=== PATIENT | female | born 1995 | race African-American/Black ===

== ENCOUNTER 2017-07-29 04:14 | Emergency (ER) | payer SELFPAY ==
[~2017-07-29] VITALS: Ht 177.8 cm; Wt 154.5 kg
[2017-07-29 04:17] VITALS: BP 153/89; PULSE 109; RESP 16; TEMP 98.8; O2SAT 100
--- NOTE | 2017-07-29 05:10 | PD ---
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 Symptoms have worsened. Patient has taken no medications for symptom relief. Patient has Mirena in place. Patient denies . Last period was approximately one month ago. Patient denies fever chills nausea vomiting diarrhea dysuria frequency urgency hematuria vaginal discharge or abnormal vaginal bleeding. Patient's had no injury. Patient is very concerned that this is ovarian pain. Patient denies previous history of ovarian cysts or ovarian issues. No reported history of endometriosis. Patient is Ab1. Pain intensity is 9/10 in intensity. Patient is unable to identify exacerbating or alleviating factors. PFSH Past Medical History Narrative Medical Negative past medical history negative surgical history; occasional alcohol use ; nursing notes reviewed Medical History: Denies Significant Hx Tetanus Vaccination: < 5 Years Influenza Vaccination: No ?: Unknown LMP: 06/2017... HAS MIRENA : 1 : 1 Past Surgical History Surgical History: No Previous Surgery Social History Alcohol Use: Yes (RARELY ) Tobacco Use: No Substance Use: No Allergies-Medications (Allergen,Severity, Reaction): Coded Allergies: No Known Allergies (Unverified , 07/29/17) Reported Meds & Prescriptions Reported Meds & Active Scripts Active No Active Prescriptions or Reported Medications Review of Systems Except as stated in HPI: all other systems reviewed are Neg General / Constitutional: No: Fever, Chills HENT: No: Congestion Cardiovascular: No: Chest Pain or Discomfort Gastrointestinal: Positive: Abdominal Pain, No: Nausea, Vomiting, Diarrhea Genitourinary: Positive: Pelvic Pain, No: Dysuria, Flank Pain, Discharge, Vaginal Bleeding Musculoskeletal: No: Myalgias, Arthralgias Skin: No Rash Neurologic: No: Weakness Psychiatric: No: Anxiety Hematologic/Lymphatic: No: Easy Bruising Physical Exam Narrative GENERAL: Well-developed well-nourished female in no acute distress no respiratory distress SKIN: Warm and dry. HEAD: Normocephalic. EYES: No scleral icterus. No injection or drainage. NECK: Supple, trachea midline. No JVD or lymphadenopathy. CARDIOVASCULAR: Regular rate and rhythm without murmurs, gallops, or rubs. RESPIRATORY: Breath sounds equal bilaterally. No accessory muscle use. GASTROINTESTINAL: Abdomen soft, suprapubic tenderness without guarding or rebound, nondistended. Pelvic exam: Normal external exam no redness induration or lesions; speculum exam scant clear mucus no clots no tissue no blood cervical os is closed; bimanual exam no cervical motion tenderness due to body habitus exam is limited and difficult to discern adnexal mass or tenderness MUSCULOSKELETAL: No cyanosis, or edema. BACK: Nontender without obvious deformity. No CVA tenderness. Data Data Last Documented VS Vital Signs Date Time Temp Pulse Resp B/P (MAP) Pulse Ox O2 Delivery O2 Flow Rate FiO2 07/29/17 04:17 98.8 109 16 153/89 (110) 100 Room Air Orders Orders Complete Blood Count With Diff (07/29/17 04:34) Basic Metabolic Panel (Bmp) (07/29/17 04:34) Urinalysis - C+S If Indicated (07/29/17 04:34) Ed Urine Pregnancytest Poc (07/29/17 04:34) Ketorolac Inj (Toradol Inj) (07/29/17 05:15) Ct Abd/Pel W Iv Contrast(Rout) (07/29/17 ) Labs Laboratory Tests Test 07/29/17 04:52 07/29/17 05:47 Urine Color YELLOW Urine Turbidity CLEAR Urine pH 5.5 Urine Specific [place] 1.026 Urine Protein NEG mg/dL Urine Glucose (UA) NEG mg/dL Urine Ketones NEG mg/dL Urine Occult Blood NEG Urine Nitrite NEG Urine Bilirubin NEG Urine Urobilinogen LESS THAN 2.0 MG/DL Urine Leukocyte Esterase NEG Urine RBC LESS THAN 1 /hpf Urine WBC LESS THAN 1 /hpf Urine Squamous Epithelial Cells <1 /hpf Urine Mucus FEW /lpf Microscopic Urinalysis Comment CULT NOT INDICATED White Blood Count 13.4 TH/MM3 Red Blood Count 5.01 MIL/MM3 Hemoglobin 10.9 GM/DL Hematocrit 34.8 % Mean Corpuscular Volume 69.5 FL Mean Corpuscular Hemoglobin 21.7 PG Mean Corpuscular Hemoglobin Concent 31.2 % Red Cell Distribution Width 17.5 % Platelet Count 486 TH/MM3 Mean Platelet Volume 8.0 FL Neutrophils (%) (Auto) 69.7 % Lymphocytes (%) (Auto) 23.0 % Monocytes (%) (Auto) 4.5 % Eosinophils (%) (Auto) 1.7 % Basophils (%) (Auto) 1.1 % Neutrophils # (Auto) 9.4 TH/MM3 Lymphocytes # (Auto) 3.1 TH/MM3 Monocytes # (Auto) 0.6 TH/MM3 Eosinophils # (Auto) 0.2 TH/MM3 Basophils # (Auto) 0.2 TH/MM3 CBC Comment DIFF FINAL Differential Comment Blood Urea Nitrogen 11 MG/DL Creatinine 0.73 MG/DL Random Glucose 97 MG/DL Calcium Level 9.1 MG/DL Sodium Level 135 MEQ/L Potassium Level 3.8 MEQ/L Chloride Level 101 MEQ/L Carbon Dioxide Level 25.3 MEQ/L Anion Gap 9 MEQ/L Estimat Glomerular Filtration Rate 121 ML/MIN MDM Medical Decision Making Medical Screen Exam Complete: Yes Emergency Medical Condition: Yes Medical Record Reviewed: Yes Interpretation(s) CBC & BMP Diagram 07/29/17 05:47 Calcium Level 9.1 Vital Signs Date Time Temp Pulse Resp B/P (MAP) Pulse Ox O2 Delivery O2 Flow Rate FiO2 07/29/17 04:17 98.8 109 16 153/89 (110) 100 Room Air [id number] hCG: Negative Differential Diagnosis Pelvic pain, ovarian cyst rupture, ovarian torsion, UTI, ectopic , intestinal spasms/colic, renal colic Narrative Course Well-nourished obese female with mild tenderness to direct palpation on abdominal exam on pelvic exam has no discharge no blood cervical os appears closed bimanual exam is obscured secondary to body habitus but does not have actual cervical motion tenderness and Mirena string is noted. Patient is identified to have white count elevation of 13,000 with an unremarkable urinalysis. CT abdomen and pelvis has been ordered. It is [address] imaging study has been signed out to oncoming physician Dr. Delcid for follow-up of results and patient disposition Diagnosis Primary Impression: Abdominal pain Scripts No Active Prescriptions or Reported Meds Shanel Gonzalez MD Jul 29, 2017 05:10
[2017-07-29] MEDS ORDERED: KETOROLAC TROMETHAMINE 30 MG/ML (IVP) VIAL IV PUSH ONE (05:15)
[2017-07-29 05:39] LABS: BLOOD, URINE NEG (NEG); COMMENT (UR) CULT NOT INDICATED; CULTURE IF INDICATED CULT NOT INDICATED; GLUCOSE,URINE NEG (NEG); KETONE, URINE NEG (NEG); MUCUS URINE FEW /lpf (OCC); NITRITE,URINE NEG (NEG); PH, URINE 5.5 (5.0-8.5); SQUAMOUS EPITHELIAL CELL URINE <1 /hpf (0-5); URINE COLOR YELLOW (YELLW/STRAW)
[2017-07-29 06:15] LABS: AUTOMATED NEUTROPHIL # 9.4 TH/MM3 (1.8-7.7); BASOPHIL # 0.2 TH/MM3 (0-0.2); BASOPHIL % 1.1 % (0.0-2.0); EOSINOPHIL # 0.2 TH/MM3 (0-0.4); EOSINOPHIL % 1.7 % (0.0-4.0); HEMATOCRIT 34.8 % (35.0-46.0); HEMO FLAGS DIFF FINAL; LYMPHOCYTE # 3.1 TH/MM3 (1.0-4.8); MEAN CELL VOLUME 69.5 FL (80.0-100.0); MEAN CORPUSCULAR HEMOGLOBIN 21.7 PG (27.0-34.0); MEAN CORPUSCULAR HGB CONC 31.2 % (32.0-36.0); MONO % 4.5 % (0.0-8.0); NEUT % 69.7 % (16.0-70.0); PLATELET COUNT 486 TH/MM3 (150-450); RED BLOOD COUNT 5.01 MIL/MM3 (4.00-5.30); RED CELL DISTRIBUTION WIDTH 17.5 % (11.6-17.2); WHITE BLOOD COUNT 13.4 TH/MM3 (4.0-11.0)
[2017-07-29 06:41] LABS: BICARBONATE 25.3 MEQ/L (21.0-32.0); POTASSIUM 3.8 MEQ/L (3.5-5.1)
--- NOTE | 2017-07-29 07:08 | PD ---
Physical Exam Narrative Received sign out to follow up CTa/p results and reevaluate pt. 21yo well appearing female here with lower abdominal pain for 1 day. Feels like sharp, cramping pain. Denies any fever, nausea or vomiting. Did not take any pain medication at home. Labs reviewed, mild leukocytosis at 13.4. BMP unremarkable. UA negative. Pt given toradol for pain with improvement of pain. Pt reevaluated at bedside and abdomen is obese, soft, mild suprapubic ttp. No rebound tenderness or guarding. Urine negative. CTa/p showed no acute disease. IUD is noted within the uterus. Wet prep negative. Return precautions given. Data Data Last Documented VS Vital Signs Date Time Temp Pulse Resp B/P (MAP) Pulse Ox O2 Delivery O2 Flow Rate FiO2 07/29/17 04:17 98.8 109 16 153/89 (110) 100 Room Air Orders Orders Complete Blood Count With Diff (07/29/17 04:34) Basic Metabolic Panel (Bmp) (07/29/17 04:34) Urinalysis - C+S If Indicated (07/29/17 04:34) Ed Urine Pregnancytest Poc (07/29/17 04:34) Ketorolac Inj (Toradol Inj) (07/29/17 05:15) Wet Prep Profile (07/29/17 07:02) Ct Abd/Pel W/O Iv Contrast (07/29/17 ) Labs Laboratory Tests Test 07/29/17 04:52 07/29/17 05:07 07/29/17 05:47 Urine Color YELLOW Urine Turbidity CLEAR Urine pH 5.5 Urine Specific [place] 1.026 Urine Protein NEG mg/dL Urine Glucose (UA) NEG mg/dL Urine Ketones NEG mg/dL Urine Occult Blood NEG Urine Nitrite NEG Urine Bilirubin NEG Urine Urobilinogen LESS THAN 2.0 MG/DL Urine Leukocyte Esterase NEG Urine RBC LESS THAN 1 /hpf Urine WBC LESS THAN 1 /hpf Urine Squamous Epithelial Cells <1 /hpf Urine Mucus FEW /lpf Microscopic Urinalysis Comment CULT NOT INDICATED Clue Cells (Wet Prep) NONE SEEN Vaginal Trichomonas (Wet Prep) NONE SEEN Vaginal Yeast (Wet Prep) NONE SEEN White Blood Count 13.4 TH/MM3 Red Blood Count 5.01 MIL/MM3 Hemoglobin 10.9 GM/DL Hematocrit 34.8 % Mean Corpuscular Volume 69.5 FL Mean Corpuscular Hemoglobin 21.7 PG Mean Corpuscular Hemoglobin Concent 31.2 % Red Cell Distribution Width 17.5 % Platelet Count 486 TH/MM3 Mean Platelet Volume 8.0 FL Neutrophils (%) (Auto) 69.7 % Lymphocytes (%) (Auto) 23.0 % Monocytes (%) (Auto) 4.5 % Eosinophils (%) (Auto) 1.7 % Basophils (%) (Auto) 1.1 % Neutrophils # (Auto) 9.4 TH/MM3 Lymphocytes # (Auto) 3.1 TH/MM3 Monocytes # (Auto) 0.6 TH/MM3 Eosinophils # (Auto) 0.2 TH/MM3 Basophils # (Auto) 0.2 TH/MM3 CBC Comment DIFF FINAL Differential Comment Blood Urea Nitrogen 11 MG/DL Creatinine 0.73 MG/DL Random Glucose 97 MG/DL Calcium Level 9.1 MG/DL Sodium Level 135 MEQ/L Potassium Level 3.8 MEQ/L Chloride Level 101 MEQ/L Carbon Dioxide Level 25.3 MEQ/L Anion Gap 9 MEQ/L Estimat Glomerular Filtration Rate 121 ML/MIN [facility] Supervised Visit with JACQUES: No Diagnosis Primary Impression: Abdominal pain Qualified Codes: R10.30 - Lower abdominal pain, unspecified Patient Instructions: General Instructions Departure Forms: Tests/Procedures Additional Instruction: Please follow up with your primary care physician in 3-7 days. Return to the ED if symptoms worsen. Med/Other Pt SpecificInfo: Prescription(s) given Scripts Acetaminophen (Tylenol) 325 Mg Tab 650 MG PO Q6H Y for PAIN SCALE 1 TO 4, #20 TAB 0 Refills Prov: Minna Delcid 07/29/17 Disposition: 01 DISCHARGE HOME Condition: Stable Minna Delcid DO Jul 29, 2017 07:08
--- NOTE | 2017-07-29 07:24 | RADRPT ---
EXAM DATE/TIME: 07/29/2017 06:56 [place] COMPARISON: No previous studies available for comparison. INDICATIONS : Bilateral lower abdominal pain. ORAL CONTRAST: No oral contrast ingested. RADIATION DOSE: 28.59 CTDIvol (mGy) ; Patient body habitus MEDICAL HISTORY : None SURGICAL HISTORY : None. ENCOUNTER: Initial ACUITY: 1 day PAIN SCALE: 9/10 LOCATION: Bilateral lower quadrant TECHNIQUE: Volumetric scanning of the abdomen and pelvis was performed. Using automated exposure control and ad justment of the mA and/or kV according to patient size, radiation dose was kept as low as reasonably achievable to obtain optimal diagnostic quality images. DICOM format image data is available electro nically for review and comparison. FINDINGS: LOWER LUNGS: The visualized lower lungs are clear. LIVER: Homogeneous density without lesion. There is no dilation of the biliary tree. No calcified gallston es. SPLEEN: Normal size without lesion. PANCREAS: Within normal limits. KIDNEYS: Normal in size and shape. There is no mass, stone, or hydronephrosis. ADRENAL GLANDS: Within normal limits. VASCULAR: There is no aortic aneurysm. BOWEL/MESENTERY: The stomach, small bowel, and colon demonstrate no acute abnormality. There is no free intraperitone al air or fluid. ABDOMINAL WALL: Within normal limits. RETROPERITONEUM: There is no lymphadenopathy. BLADDER: No wall thickening or mass. REPRODUCTIVE: IUD device is noted within the uterus. INGUINAL: There is no lymphadenopathy or hernia. MUSCULOSKELETAL: Within normal limits for patient age. CONCLUSION: No acute disease. Guero Ruano MD on July 29, 2017 at 7:20 Board Certified Radiologist. This report was verified electronically.
[2017-07-29] MEDS ORDERED: TYLE325T PO (07:53)
== END 2017-07-29 08:17 | disposition home or self-care (01) ==
LOC: NEPC 04:14
DX: R10.30 Lower abdominal pain, unspecified (principal)
CPT/HCPCS: 74176; 80048; 81001; 84703; 85025; 87210; 96374; 99285; J1885